=== PATIENT | female | born 1970 | race Caucasian/White ===

== ENCOUNTER 2020-07-05 08:01 | Day surgery (SDC) | payer BC ==
[2020-07-02 13:20] LABS: BASOPHILS ABSOLUTE AUTO 0.03 K/mm3 (0.00-0.23); BASOPHILS PERCENT AUTO 1 % (0-2); EOSINOPHILS ABSOLUTE AUTO 0.19 K/mm3 (0.00-0.68); EOSINOPHILS PERCENT AUTO 4 % (0-6); Hematocrit 41.3 % (33.0-51.0); Hemoglobin 13.8 g/dL (11.5-16.0); IMMATURE GRAN ABSOLUTE AUTO 0.01 K/mm3 (0.00-0.10); IMMATURE GRAN PERCENT AUTO 0 % (0-1); LYMPHOCYTES ABSOLUTE AUTO 1.38 K/mm3 (0.84-5.20); LYMPHOCYTES PERCENT AUTO 26 % (21-46); MONOCYTES ABSOLUTE AUTO 0.64 K/mm3 (0.16-1.47); MONOCYTES PERCENT AUTO 12 % (4-13); Mean Corpuscular HGB Conc 33.4 g/dL (31.5-36.5); Mean Corpuscular Volume 90 fL (80-100); Mean Platelet Volume 10.3 fL (9.1-12.4); NEUTROPHILS ABSOLUTE AUTO 2.97 K/mm3 (1.96-9.15); NEUTROPHILS PERCENT AUTO 57 % (41-73); Platelet Count 353 K/mm3 (150-400); RDW Coefficient Variation 11.7 % (11.7-14.2); RDW Standard Deviation 38.6 fL (35.1-46.3); White Blood Cell Count 5.22 K/mm3 (4.00-11.30)
[2020-07-02 14:17] LABS: Anion Gap 7 mmol/L (6-16); Beta HCG, Quantitative, Serum <1 mIU/mL (0-3); Blood Urea Nitrogen 13 mg/dL (8-24); Bun/Creatinine Ratio 16.3 (12.0-20.0); CO2, Blood 24 mmol/L (21-32); Calcium, Blood 9.3 mg/dL (8.5-10.1); Chloride, Blood 107 mmol/L (98-108); Glomerular Filtration Rate >60 (60-); Glucose, Blood 92 mg/dL (70-99); Potassium, Blood 4.3 mmol/L (3.5-5.5); Sodium, Blood 138 mmol/L (136-145)
[~2020-07-05] VITALS: Ht 165.1 cm; Wt 106.9 kg
[~2020-07-05 08:01] MED LIST: METO25ER PO; TRAM50 PO; VALTREX500 M2 PO
--- NOTE | 2020-07-05 08:49 | NUR ---
Ambulatory in Day Surgery History, Chart, Medications and Allergies reviewed before start of procedure. Lungs clear T/O to Auscultation. Patient confirms NPO status and agrees with scheduled surgery. Pre-Op teaching done. Pt verbalizes understanding. Patient States Post-Procedure ride home has been arranged.
--- NOTE | 2020-07-05 17:49 | NUR ---
summary pt reports pain 3-4/10 after morphine and toradol. intermittent nausea with some retching- pt medicated for nausea. pt reports the catheter is causing her he most discomfort. pt aware that catheter can be removed if continues to bother her.
--- NOTE | 2020-07-05 17:53 | NUR ---
peripad with scant bloody drainage, has not needed pad changed since return from [facility]
[2020-07-06 04:49] LABS: BASOPHILS ABSOLUTE AUTO 0.02 K/mm3 (0.00-0.23); BASOPHILS PERCENT AUTO 0 % (0-2); EOSINOPHILS ABSOLUTE AUTO 0.03 K/mm3 (0.00-0.68); EOSINOPHILS PERCENT AUTO 0 % (0-6); Hematocrit 34.8 % (33.0-51.0); Hemoglobin 11.5 g/dL (11.5-16.0); IMMATURE GRAN ABSOLUTE AUTO 0.03 K/mm3 (0.00-0.10); IMMATURE GRAN PERCENT AUTO 0 % (0-1); LYMPHOCYTES ABSOLUTE AUTO 1.82 K/mm3 (0.84-5.20); LYMPHOCYTES PERCENT AUTO 17 % (21-46); MONOCYTES ABSOLUTE AUTO 1.27 K/mm3 (0.16-1.47); MONOCYTES PERCENT AUTO 12 % (4-13); Mean Corpuscular HGB 29.9 pg (26.0-34.0); Mean Corpuscular Volume 91 fL (80-100); Mean Platelet Volume 10.3 fL (9.1-12.4); NEUTROPHILS PERCENT AUTO 71 % (41-73); Platelet Count 301 K/mm3 (150-400); RDW Coefficient Variation 11.9 % (11.7-14.2); RDW Standard Deviation 39.1 fL (35.1-46.3); Red Blood Cell Count 3.84 M/mm3 (3.80-5.20); White Blood Cell Count 10.97 K/mm3 (4.00-11.30)
--- NOTE | 2020-07-06 06:17 | NUR ---
SHIFT SUMMARY: FABIANO IS A&OX4. VSS, NO ACUTE EVENTS OVERNIGHT. RADHIKA REMOVED THIS AM, SALINE LOCKED. SHE IS TOLERATING PO INTAKE WELL. SHE REPORTS ADEQUATE PAIN CONTROL WITH 2 TABLETS OF PERCOCET, TORADOL, AND MORPHINE. SCANT DRAINAGE ON THE CANDIE PAD. HER BROUGHT FOOD IN FOR HER DUE TO HER FOOD ALLERGIES. LAP SITES C/D&I. SHE IS LYING IN BED WITH THE CALL LIGHT IN REACH. WILL REPORT TO DAY SHIFT RN.
[2020-07-06] MEDS ORDERED: DOCU100 PO (11:34)
[2020-07-06] MEDS ORDERED: SIME80CH PO (11:36)
[2020-07-06] MEDS ORDERED: ESTR2 PO (11:36)
[2020-07-06] MEDS ORDERED: SENN187 PO (11:42)
[2020-07-06] MEDS ORDERED: DULCOLAX400 MG/5 M PO (12:21)
[2020-07-06] MEDS ORDERED: Percocet 5-3251 EACH PO (12:23)
[2020-07-06] MEDS ORDERED: PROM25 PO (12:24)
[2020-07-06] MEDS ORDERED: IBUP400 PO (12:25)
--- NOTE | 2020-07-06 14:34 | NUR ---
1400 DISCHARGE INSTRUCTIONS REVIEWED WITH PATIENT AND HER . PT VOIDING , AMBULATING INDEPENDENTLY, PT TAY PO FOOD AND FLUIDS WITHOUT NAUSEA. REPORTS PAIN IS ADEQUATELY CONTROLLED. PT DISCHARGED TO HOME WITH . PT HAS FOLLOW UP APPT SCHEDULED
[2020-10-17] MEDS ORDERED: TRAM50 PO (10:47)
== END 2020-07-06 14:00 | disposition home or self-care (01) ==
LOC: ORSCMMR 08:01 → SURS 08:01 → ORSCMMR 09:30 → ORD 09:30 → SURS 14:30 → ORSCMMR 07-06 14:00
PROVIDERS: Obstetrics & Gynecology
PROC: 0DNW4ZZ Release Peritoneum, Percutaneous Endoscopic Approach (ICD-10-PCS; principal; 2020-07-05 09:30)
PROC: 0UT94ZZ Resection of Uterus, Percutaneous Endoscopic Approach (ICD-10-PCS; principal; 2020-07-05 09:30)
PROC: 0UT74ZZ Resection of Bilateral Fallopian Tubes, Percutaneous Endoscopic Approach (ICD-10-PCS; principal; 2020-07-05 09:30)
PROC: 0UT24ZZ Resection of Bilateral Ovaries, Percutaneous Endoscopic Approach (ICD-10-PCS; principal; 2020-07-05 09:30)
PROC: 8E0W4CZ Robotic Assisted Procedure of Trunk Region, Percutaneous Endoscopic Approach (ICD-10-PCS; principal; 2020-07-05 09:30)
DX: N92.0 Excessive and frequent menstruation with regular cycle (principal); N94.6 Dysmenorrhea, unspecified; D25.0 Submucous leiomyoma of uterus; N94.10 Unspecified dyspareunia; N80.9 Endometriosis, unspecified
CPT/HCPCS: 58571; 49329; S2900; 36415; 80048; 84702; 85025; 86850; 86900; 86901; 88307; A9270; J0330; J0690; J1885; J2250; J2270; J2405; J2710; J3010; J7120

== ENCOUNTER 2020-10-23 06:57 | Day surgery (SDC) | payer BC ==
[~2020-10-23] VITALS: Ht 165.1 cm; Wt 104.3 kg
[~2020-10-23 06:57] MED LIST changes: +DOCU100 PO; +DULCOLAX400 MG/5 M PO; +ESTR2 PO; +IBUP400 PO; +PROM25 PO; +Percocet 5-3251 EACH PO; +SENN187 PO; +SIME80CH PO
--- NOTE | 2020-10-23 14:44 | NUR ---
Discharge instructions reviewed with patient. Patient verbalizes understanding. Copy given to patient to take home. DRG C/D/I, VSS, PAIN CONTROLLED. PT TOLERATED PO WATER, YOGURT WELL. GAVE PAIN PILL PER ORDER. Discharged via wheelchair to private car for ride home.
--- NOTE | 2020-10-25 10:48 | NUR ---
10/25/20 1048 Chiquita Liang VERIFICATIONS: EDIT CHART.
== END 2020-10-23 14:35 | disposition home or self-care (01) ==
LOC: ORSCMMR 06:57 → ORD 08:30 → ORSCMMR 08:30
PROVIDERS: Surgery
PROC: 0WUF4JZ Supplement Abdominal Wall with Synthetic Substitute, Percutaneous Endoscopic Approach (ICD-10-PCS; principal; 2020-10-23 10:15)
DX: K43.2 Incisional hernia without obstruction or gangrene (principal); I10 Essential (primary) hypertension; Z79.899 Other long term (current) drug therapy
CPT/HCPCS: A9270; C1781; J0690; J1100; J1885; J2001; J2250; J2405; J2704; J3010; J7120

== ENCOUNTER → 2021-02-03 | Outpatient (CLI) | payer BC | END | disposition home or self-care (01) | LOC: LAB SHORT 12:09 → LAB 12:09 | DX: L02.31 Cutaneous abscess of buttock (principal) | CPT/HCPCS: 87070; 87075; 87077; 87147; 87186; 87205 ==